=== PATIENT | female | born 1990 | race Caucasian/White ===

== ENCOUNTER → 2019-06-19 10:11 | Outpatient (CLI) | payer OTHER, SELFPAY ==
[2019-06-19 11:19] LABS: Follicle Stimulating Hormone 3.76 mIU/mL; Luteinizing Hormone 0.37 mIU/mL
[2019-06-19 11:36] LABS: Free T4, Direct Thyroxine 0.82 ng/dL (0.78-2.19)
[2019-06-19 11:50] LABS: Thyroid Stimulating Hormone 1.91 uIU/mL (0.47-4.68)
== END ==
PROVIDERS: Visit Provider Obstetrics & Gynecology
DX: N92.6 Irregular menstruation, unspecified (principal)
CPT/HCPCS: 36415; 83001; 83002; 84439; 84443

== ENCOUNTER → 2019-07-26 15:25 | Outpatient (CLI) | payer OTHER, SELFPAY ==
[2019-07-26 16:39] LABS: Glucose 89 mg/dL (70-100)
[2019-07-28 14:39] LABS: Insulin Level Total 6.8 uIU/mL (2.0-19.6)
== END ==
PROVIDERS: PCP Physician Assistant; Visit Provider Obstetrics & Gynecology
DX: E28.2 Polycystic ovarian syndrome (principal)
CPT/HCPCS: 36415; 82947; 83525

== ENCOUNTER 2019-08-02 08:27 | Day surgery (SDC) | payer OTHER, SELFPAY ==
[2019-07-31 13:55] VITALS: BMI 40.1
[2019-08-02] VITALS (11 sets, daily range): BP systolic 88–127; BP diastolic 60–77; PULSE 71–92; RESP 11–16; TEMP 36.2–36.7; O2SAT 98–100; BMI 40.1
--- NOTE | 2019-08-02 | PATH_ITS ---
[facility] Accession Number: [id number] . 01 Material submitted: . uterus - UTERUS AND BILATERAL FALLOPIAN TUBES . 02 Diagnosis: Uterus and Bilateral Fallopian Tubes, Supracervical Hysterctomy and Bilateral Salpingectomy: Proliferative endometrium with no diagnostic abnormality. Leiomyoma, 0.8 cm in greatest dimension. Bilateral fimbriated fallopian tubes with no diagnostic abnormality. No evidence of neoplasm. MRV 08/06/2019 1316 Local . 02 Electronically signed: . Michael Qureshi MD, PhD, Pathologist NPI- [id number] . 01 Gross description: . Received in formalin, labeled uterus, bilateral fallopian tubes, is a sliced opened upper uterine body (21 grams, 4.2 x 3.8 x 2.4 cm) and two detached fimbriated fallopian tubes (tube #1: length-4.2 cm, diameter-0.4 cm; tube #2: length-5.5 cm, diameter-0.4 cm). The cervix and ovaries are absent. The specimen cannot be oriented. The endometrium (average thickness-0.1 cm) is garg-pink smooth and flat. The myometrium (thickness-1.2 cm) is garg-white and contains a white whorled solid firm well-circumscribed homogenous nodule (0.8 x 0.6 x 0.5 cm). The serosa is pale garg smooth and shiny. The fallopian tubes have garg-pink smooth shiny serosa and garg unremarkable lumens. Section code: (A1, A2) endomyometrium; (A3, A4) endomyometrium, opposite side; (A5) fallopian tube #1, guest relations representative serial sections; (A6) fimbria #1, bivalved, entirely submitted; (A7) fallopian tube #2, guest relations representative serial sections; (A8) fimbria #2, bivalved, entirely submitted. ([id number]) /MRV 08/04/20192023 Local . 02 Pathologist provided ICD-10: R10.2, N94.6 . 02 CPT . 490192 Performed at: [facility] [address] [id number] MD Yang Burns MD Phone: [phone] Performed at: [facility] [id number] [place], [place] [id number] MD Renee Del Valle MD Phone: [phone]
[2019-08-02] MEDS: LACTATED RINGERS 1,000 ML 42 ML IV (09:10)
--- NOTE | 2019-08-02 10:24 | PM.PREOP ---
Pre-operative Note Interval Note History & Physical reviewed/Exam performed by Physician: Yes Changes to H&P: No
[2019-08-02] MEDS: CEFAZOLIN 2 GM/100 ML FROZ.PIGGY IV (10:29)
--- NOTE | 2019-08-02 10:56 | SUR.OPER ---
Lithotomy on padded OR bed. Schoolcraft Pad Positioner under torso. Head on pillow, arms padded and tucked at sides. Legs secured in padded yellow fins stirrups.
[2019-08-02] MEDS: BUPIVACAINE 0.5% W/ EPI (PF) VIAL 30 ML INJ (11:20)
[2019-08-02] MEDS: ROPIVACAINE 0.2% PF 2 MG/ML 10ML AMP 10 ML INJ (11:23)
[2019-08-02] MEDS: HYDROMORPHONE 2 MG INJ 0.5 MG IV ×2 (12:05→12:15)
--- NOTE | 2019-08-02 12:47 | SUR.PHASEI ---
Patient arrived in PACU awake and c/o 05/09 pain. Gave pain medication and patient currently 01/07. Dressing CDI. CAMACHO's x 4. Very talkative and cooperative with care. Will continue to monitor.
--- NOTE | 2019-08-02 13:12 | SUR.PHASEII ---
Report given to SAVANAH Craft.
[2019-08-02] MEDS: HYDROCODONE/ACET 5/325 TABLET 2 TAB PO (13:36)
--- NOTE | 2019-08-02 13:53 | SUR.PHASEII ---
Pt. up to EOB with min. assist, sat a moment then into w/c, rolled into bathroom with to attemp to void. Spouse will assist pt. with dressing in bathroom.
--- NOTE | 2019-08-02 14:06 | SUR.PHASEII ---
pt. voided via toilet without issues. Ready for D/C home
--- NOTE | 2019-08-02 17:36 | PM.GYNOP.1 ---
Operative Date/Time/Diagnoses Date of procedure: 08/02/19 Time of procedure: 12:00 Pre-op diagnosis: Dysmenorrhea Pelvic pain Polycystic ovaries the Post-op diagnosis: same Procedure & Clinicians Procedure: Procedures Operation Date: 08/02/19 09:45 Actual Procedures Side Surgeon p Laparoscopic Supracervical Hysterectomy w/ bilateral salpingectomy Not Applicable Joseline Pugh MD Indications: Pelvic pain Polycystic ovaries Dysmenorrhea Surgeon: Joseline Pugh [employer] Portfolio Manager: Calos Myrick Anesthesia Type: General Operative Notes Findings: 7 week size anteverted uterus Polycystic ovaries bilaterally Normal tubes Normal liver, gallbladder, and appendix Closure Type: primary Specimen(s): left tube, right tube and uterus Applied: catheter (Removed at the end of the case) Estimated blood loss (mL): 10 Procedure in detail: The patient was taken to the operating room where she was placed in the dorsal supine position. After adequate general endotracheal anesthesia was achieved, she was placed in the dorsal lithotomy position, and prepped and draped in the usual sterile fashion. A timeout was performed. A bivalve speculum was placed into the vagina and the anterior lip of the cervix grasped with a single-tooth tenaculum. The cervical os was sequentially dilated until the ZUMI uterine manipulator could pass easily into the endometrial cavity. The single-tooth tenaculum was removed from the anterior lip of the cervix, and the bivalve speculum was removed from the vagina. Attention was then turned to the abdomen where 6 mL of half percent Marcaine with epinephrine were injected in the umbilical fold. A 5 mm incision was made. The long Verhees needle was placed into the peritoneal cavity, and its placement confirmed by aspiration and drop test. The Verhees needle was removed. A 5 mm trocar was placed without difficulty. 2 other incisions were made midway between the pubic symphysis and umbilicus after 5 mL of half percent Marcaine with epinephrine were injected. These were 5 mm incisions. Two long the 5 mm trochars were placed under direct visualization. The right tube was grasped with an atraumatic grasper. Using the plasma kinetic with settings of 40 W the mesosalpinx was cauterized and cut all the way down to the cornua of the uterus. The cornua of the uterus was then grasped with an atraumatic grasper. The utero-ovarian ligaments were cauterized and cut. The round ligament and broad ligament was cauterized and cut with plasma kinetic. Hemostasis was achieved. The bladder flap was created using the plasma kinetic with cautery and cut longterm across. The uterine arteries on the right side were extensively cauterized with plasma kinetic. All of this was repeated on the left side. The remainder of the bladder flap was created using the plasma kinetic, and the bladder taken down off the lower uterine segment and cervix. Using the Endoloop, the cervix was amputated from the uterus 2 cm above the uterosacral ligaments, after the ZUMI uterine manipulator was removed from the uterus. There was a small amount of bleeding noted from the posterior edge of the cervix, and this was cauterized for hemostasis. A sponge stick was placed into the vagina. 6 mL of half percent Marcaine with epinephrine were injected above the pubic symphysis. A 12 mm trocar was placed and removed. An Endobag was placed through the suprapubic incision. The uterus was placed into the endobag. The edges of the endobag were brought up through the skin. The Jacky was placed into the endobag. The uterus was morc ellated in approximately 4 pieces. The endobag was removed from the peritoneal cavity. 20 cc of 0.2% ropivacaine were placed over the pedicles The instruments were removed from the abdomen. The suprapubic incision was closed with 0 Vicryl on the fascia. All of the incisions were closed with 4-0 Biosyn in a subcuticular fashion. Steri-Strips, 2 x 2, and op sites were placed. The moistened sponge stick was removed from the vagina. Sponge, lap, and instrument counts were correct x-2. The patient tolerated the procedure well, was taken to PACU in stable condition. Complications: none Post-operative Condition: stable Disposition: PACU Plan for aftercare: Home after recovery
== END 2019-08-02 14:07 | disposition home or self-care (01) ==
PROVIDERS: PCP Physician Assistant; Visit Provider Obstetrics & Gynecology
PROC: 0UT94ZL Resection of Uterus, Supracervical, Percutaneous Endoscopic Approach (ICD-10-PCS; CPT 58542; principal; 2019-08-02 09:45)
DX: N94.6 Dysmenorrhea, unspecified (principal); E28.2 Polycystic ovarian syndrome
CPT/HCPCS: 58542; J0690; J1100; J1170; J1885; J2250; J2405; J2704; J2795; J3010